=== PATIENT | male | born 1965 | race American Indian/Alaskan Native ===

== ENCOUNTER 2020-10-08 18:40 | Emergency (ER) | payer SELFPAY ==
[2020-10-08 21:35] LABS: Bilirubin,Urine NEG (Negative); Blood,Urine NEG (Negative); Color,Urine Yellow (Yellow); Mucus,Urine FEW /HPF; Urobilinogen,Urine < 2.0 mg/dL (<2.0); WBC,Urine > 182.0 /HPF (0.0-6.0)
[2020-10-08 21:36] LABS: Amphetamine Screen,Urine PRESUMPTIVE NEGATIVE; Benzodiazepines Screen,Urine PRESUMPTIVE NEGATIVE; Cannabinoid Screen,Urine PRESUMPTIVE NEGATIVE; Cocaine Screen,Urine PRESUMPTIVE NEGATIVE; Methadone Screen,Urine PRESUMPTIVE NEGATIVE; Opiate Screen,Urine PRESUMPTIVE NEGATIVE
--- NOTE | 2020-10-08 21:47 | Emergency Department Report ---
ED Male HPI - General Chief complaint: Abdominal Pain Stated complaint: PROSTATE PAIN Time Seen by Provider: 10/08/20 21:34 Source: patient Mode of arrival: Ambulatory Limitations: No Limitations - History of Present Illness Initial comments: CC: "I have been using the bathroom." HPI: THis is a 55 yo male without significant past medical hx who presents with frequent urination and diarrhea for 2 months. He has had diarrhea intermittently once he changed his diet. He started to eat frozen sausage biscuits in order to gain weight. He then developed crampy abdominal pain and diarrhea. With diet change and supplements, diarrhea and abdominal pain have resolved. Now patient is concerned for frequent urination especially at night. He has to urinate at least 5 times at night. His urine stream is a dribble, at times. He desires medication for prostate and urine flow. Mr. Ly has attempted to obtain primary health care through [facility] without success. He does not have health insurance. He denies current fever, abdominal pain, back pain, leg weakness., Complaint: other (frequent urination) -: Gradual, month(s) (2) Severity: mild Improves with: urination Worsens with: urination denies other symptoms - Related Data Previous Rx's Medication Instructions Recorded Last Taken Type HYDROcodone/APAP 5-325 [[place] 1 each PO Q6HR PRN #10 tablet 01/09/16 Unknown Rx 5/325] Nitrofurantoin Macrocrystal 100 mg PO BID 10 Days #20 capsule 10/08/20 Unknown Rx [Nitrofurantoin] Tamsulosin [Flomax] 0.4 mg PO QDAY 90 Days #90 cap 10/08/20 Unknown Rx Allergies Allergy/AdvReac Type Severity Reaction Status Date / Time No Known Allergies Allergy Verified 01/09/16 01:01 ED Review of Systems ROS: Stated complaint: PROSTATE PAIN Other details as noted in HPI Comment: All other systems reviewed and negative Constitutional: denies: fever, malaise Cardiovascular: denies: chest pain Gastrointestinal: abdominal pain, diarrhea. denies: nausea, vomiting Musculoskeletal: denies: back pain ED Past Medical Hx - Past Medical History Previous Medical History?: Yes Additional medical history: Dysuria - Surgical History Past Surgical History?: No - Social History Smoking Status: Never Smoker Substance Use Type: Alcohol, Marijuana - Medications Home Medications: Home Medications Medication Instructions Recorded Confirmed Last Taken Type HYDROcodone/APAP 5-325 [[place] 1 each PO Q6HR PRN #10 tablet 01/09/16 Unknown Rx 5/325] Nitrofurantoin Macrocrystal 100 mg PO BID 10 Days #20 capsule 10/08/20 Unknown Rx [Nitrofurantoin] Tamsulosin [Flomax] 0.4 mg PO QDAY 90 Days #90 cap 10/08/20 Unknown Rx ED Physical Exam - General Limitations: No Limitations General appearance: alert, in no apparent distress - Head Head exam: Present: atraumatic, normocephalic - Eye Eye exam: Present: normal appearance - ENT ENT exam: Present: mucous membranes moist - Neck Neck exam: Present: normal inspection, full ROM - Respiratory Respiratory exam: Present: normal lung sounds bilaterally. Absent: respiratory distress - Cardiovascular Cardiovascular Exam: Present: regular rate, normal rhythm, normal heart sounds. Absent: systolic murmur, diastolic murmur, rubs, gallop - GI/Abdominal GI/Abdominal exam: Present: soft, normal bowel sounds. Absent: distended, tenderness, guarding, rebound - Rectal Rectal exam: Present: deferred - Extremities Exam Extremities exam: Present: normal inspection - Back Exam Back exam: Present: normal inspection - Neurological Exam Neurological exam: Present: alert, oriented X3 - Psychiatric Psychiatric exam: Present: normal affect, normal mood - Skin Skin exam: Present: warm, dry, intact, normal color. Absent: rash ED Course Vital Signs 10/08/20 10/08/20 18:46 18:47 Temperature 98.2 F 98.2 F Pulse Rate 109 H 108 H Respiratory 22 18 Rate Blood Pressure 163/82 175/126 O2 Sat by Pulse 96 99 Oximetry ED Medical Decision Making - Lab Data Laboratory Results - last 24 hr 10/08/20 10/08/20 Unknown Unknown Urine Color Yellow Urine Turbidity Slightly-cloudy Urine pH 7.0 Ur Specific [place] 1.018 Urine Protein 30 mg/dl Urine Glucose (UA) Neg Urine Ketones Neg Urine Blood Neg Urine Nitrite Neg Urine Bilirubin Neg Urine Urobilinogen < 2.0 Ur Leukocyte Esterase Lg Urine WBC (Auto) > 182.0 H Urine RBC (Auto) 9.0 U Epithel Cells (Auto) 1.0 Urine Mucus Few Urine Opiates Screen Presumptive negative Urine Methadone Screen Presumptive negative Ur Barbiturates Screen Presumptive negative Ur Phencyclidine Scrn Presumptive negative Ur Amphetamines Screen Presumptive negative U Benzodiazepines Scrn Presumptive negative Urine Cocaine Screen Presumptive negative U Marijuana (THC) Screen Presumptive negative Drugs of Abuse Note Disclamer - Medical Decision Making Mr. Ly presents with abdominal pain and diarrhea which have resolved with diet change and OTC medications. Frequent urination attributed to BPH. With UA reflective of UTI with pyuria, prostatitis or complicated UTI due to urinary retention must be considered. rx: nitrofurantoin, flomax referred to outpatient medicine physician Critical care attestation.: If time is entered above; I have spent that time in minutes in the direct care of this critically ill patient, excluding procedure time. ED Disposition Clinical Impression: BPH (benign prostatic hyperplasia), UTI (urinary tract infection) Disposition: - TO HOME OR SELFCARE Is pt being admited?: No Does the pt Need Aspirin: No Condition: Stable Instructions: Benign Prostatic Hyperplasia, Acute Urinary Retention, Male, [id number] Prescriptions: Tamsulosin [Flomax] 0.4 mg PO QDAY 90 Days #90 cap Nitrofurantoin Macrocrystal [Nitrofurantoin] 100 mg PO BID 10 Days #20 capsule Referrals: ANA RUDOLPH MD [Staff Physician] - 3-5 Days
[2020-10-08 22:11] VITALS: BP 147/85
== END 2020-10-08 22:03 | disposition home or self-care (01) ==
LOC: ED 18:40
DX: N40.0 Benign prostatic hyperplasia without lower urinary tract symptoms (principal); N39.0 Urinary tract infection, site not specified; F12.90 Cannabis use, unspecified, uncomplicated; Z79.899 Other long term (current) drug therapy
CPT/HCPCS: 80307; 81001; 99283

== ENCOUNTER 2021-06-27 01:23 | Emergency (ER) | payer MEDICARE ==
[2021-06-27 04:13] VITALS: BP 160/78
--- NOTE | 2021-06-27 04:41 | Emergency Department Report ---
ED General Adult HPI - General Chief complaint: Neuro Symptoms/Deficit Stated complaint: RT SIDE NUMBNESS Source: patient Mode of arrival: Ambulatory Limitations: No Limitations - History of Present Illness Initial comments: Patient is a 56-year-old -[place] male with a history of BPH who presents to the ED with complaint of acute onset persistent intermittent right lateral cervical and right arm and right finger tingling sensation for the last 5 hours but which has since resolved upon arrival in the ED. Patient states that he laid down to sleep and laid on his right side but woke up with numbness and tingling sensation of his fingers and hand and that the tingling sensation appeared to radiate to the right lateral cervical area. Patient states that the symptoms have since resolved. Patient denies chest pain, shortness of breath, dizziness, syncope, headache, change in speech, change in vision, right arm weakness, cough, traumatic injury, heavy lifting or back pain and neck pain. MD Complaint: Right arm tingling sensation that radiates to the right lateral neck -: Sudden, hour(s) (5) Location: neck (Lateral right neck), upper extremity (Right arm) Radiation: non-radiation Severity scale (0 -10): 4 Quality: sharp, other (Tingling sensation) Consistency: now resolved Improves with: none Worsens with: none Associated Symptoms: denies other symptoms. denies: confusion, chest pain, cough, diaphoresis, fever/chills, headaches, loss of appetite, malaise, nausea/vomiting, shortness of breath, syncope, weakness, other Treatments Prior to Arrival: none - Related Data Previous Rx's Medication Instructions Recorded Last Taken Type HYDROcodone/APAP 5-325 [[place] 1 each PO Q6HR PRN #10 tablet 01/09/16 Unknown Rx 5/325] Nitrofurantoin Macrocrystal 100 mg PO BID 10 Days #20 capsule 10/08/20 Unknown Rx [Nitrofurantoin] Tamsulosin [Flomax] 0.4 mg PO QDAY 90 Days #90 cap 10/08/20 Unknown Rx Naproxen 500 mg PO Q12H PRN #20 tablet 06/27/21 Unknown Rx predniSONE [Deltasone] 40 mg PO QDAY #10 tab 06/27/21 Unknown Rx Allergies Allergy/AdvReac Type Severity Reaction Status Date / Time No Known Allergies Allergy Verified 01/09/16 01:01 ED Review of Systems ROS: Stated complaint: RT SIDE NUMBNESS Other details as noted in HPI Constitutional: denies: chills, fever Eyes: denies: eye pain, eye discharge, vision change ENT: denies: ear pain, throat pain Respiratory: denies: cough, shortness of breath, wheezing Cardiovascular: denies: chest pain, palpitations Endocrine: no symptoms reported Gastrointestinal: denies: abdominal pain, nausea, diarrhea Genitourinary: denies: urgency, dysuria Musculoskeletal: arthralgia (Right arm and fingers tingling sensation), other (Lateral right cervical tingling sensation). denies: back pain, joint swelling Skin: denies: rash, lesions Neurological: denies: headache, weakness, numbness, paresthesias Psychiatric: denies: anxiety, depression Hematological/Lymphatic: denies: easy bleeding, easy bruising ED Past Medical Hx - Past Medical History Previous Medical History?: Yes Additional medical history: BPH; dysuria - Social History Smoking Status: Current Every Day Smoker Substance Use Type: Marijuana - Medications Home Medications: Home Medications Medication Instructions Recorded Confirmed Last Taken Type HYDROcodone/APAP 5-325 [[place] 1 each PO Q6HR PRN #10 tablet 01/09/16 Unknown Rx 5/325] Nitrofurantoin Macrocrystal 100 mg PO BID 10 Days #20 capsule 10/08/20 Unknown Rx [Nitrofurantoin] Tamsulosin [Flomax] 0.4 mg PO QDAY 90 Days #90 cap 10/08/20 Unknown Rx Naproxen 500 mg PO Q12H PRN #20 tablet 06/27/21 Unknown Rx predniSONE [Deltasone] 40 mg PO QDAY #10 tab 06/27/21 Unknown Rx ED Physical Exam - General Limitations: No Limitations General appearance: alert, in no apparent distress - Head Head exam: Present: atraumatic, normocephalic, normal inspection - Eye Eye exam: Present: normal appearance, PERRL, EOMI Pupils: Present: normal accommodation - ENT ENT exam: Present: normal exam, normal orophraynx, mucous membranes moist, TM's normal bilaterally, normal external ear exam - Neck Neck exam: Present: normal inspection, full ROM - Respiratory Respiratory exam: Present: normal lung sounds bilaterally. Absent: respiratory distress, wheezes, rales, rhonchi, chest wall tenderness, accessory muscle use, decreased breath sounds - Cardiovascular Cardiovascular Exam: Present: regular rate, normal rhythm, normal heart sounds. Absent: systolic murmur, diastolic murmur, rubs, gallop - GI/Abdominal GI/Abdominal exam: Present: soft, normal bowel sounds. Absent: tenderness, guarding, rebound, hyperactive bowel sounds, hypoactive bowel sounds, organomegaly, mass - Extremities Exam Extremities exam: Present: normal inspection, full ROM, normal capillary refill - Back Exam Back exam: Present: normal inspection, full ROM. Absent: tenderness, CVA tenderness (R), CVA tenderness (L), muscle spasm, paraspinal tenderness, vertebral tenderness - Neurological Exam Neurological exam: Present: alert, oriented X3, CN II-XII intact, normal gait, reflexes normal - Psychiatric Psychiatric exam: Present: normal affect, normal mood - Skin Skin exam: Present: warm, dry, intact, normal color. Absent: rash ED Course Vital Signs 06/27/21 02:57 Temperature 98.2 F Pulse Rate 81 Respiratory 18 Rate Blood Pressure 160/78 O2 Sat by Pulse 97 Oximetry ED Medical Decision Making - Radiology Data Radiology results: report reviewed, image reviewed [facility] [address] [place] [address] Cat Scan Report Signed Patient: KIRAN BARNES MR#: [id number] : 1965 Acct:[id number] Age/Sex: 56 / M ADM Date: 06/27/21 Loc: ED Attending Dr: Ordering Physician: MELVI VALIENTE MD Date of Service: 06/27/21 Procedure(s): CT cervical spine wo con Accession Number(s): [id number] cc: MELVI VALIENTE MD CT CERVICAL SPINE WITHOUT CONTRAST INDICATION: Right-sided weakness from neck to hand. COMPARISON: None available. TECHNIQUE: Axial, coronal and sagittal CT imaging of the cervical spine without contrast was performed. All CT scans at this location are performed using CT dose reduction for ALARA by means of automated exposure control. FINDINGS: VERTEBRAE:No acute fracture. Normal alignment. DISC SPACES: Mild discogenic degenerative changes are noted at C5-C6. FACET JOINTS:No significant abnormality. CENTRAL CANAL: There is mild central canal stenosis at C5-C6 secondary to a disc protrusion. No significant neural foraminal narrowing. SOFT TISSUES:No significant abnormality. LUNG APICES: No significant abnormality. ADDITIONAL FINDINGS: None IMPRESSION: 1. No acute findings. 2. Mild cervical spondylosis with mild central canal stenosis at C5-C6. Signer Name: Alcides Osborne MD Signed: 06/27/2021 5:13 AM Workstation Name: [id number] Transcribed By: MN Dictated By: Alcides Osborne MD Electronically Authenticated By: Alcides Osborne MD Signed Date/Time: 06/27/21512 DD/ 0 TD/TT: [facility] [address] [place] [address] Cat Scan Report Signed Patient: KIRAN BARNES MR#: [id number] : 1965 Acct:[id number] Age/Sex: 56 / M ADM Date: 06/27/21 Loc: ED Attending Dr: Ordering Physician: MELVI VALIENTE MD Date of Service: 06/27/21 Procedure(s): CT head/brain wo con Accession Number(s): [id number] cc: MELVI VALIENTE MD CT HEAD WITHOUT CONTRAST INDICATION : RIGHT sided weakness from neck to hand. TECHNIQUE: Axial, coronal and sagittal CT imaging was performed from the skull apex through the skull base without contrast. All CT scans at this location are performed using CT dose reduction for ALARA by means of automated exposure control. COMPARISON: None available. FINDINGS: PARENCHYMA: No mass, midline shift, hemorrhage, extraaxial collection or acute territorial infarction. VENTRICLES: Symmetric and normal in size. SOFT TISSUES: No significant abnormality of the included soft tissues/orbits. BONES: No acute osseous abnormality. SINUSES: No significant abnormality. ADDITIONAL FINDINGS: None. IMPRESSION: 1. No acute intracranial abnormality. Signer Name: Alcides Osborne MD Signed: 06/27/2021 5:11 AM Workstation Name: [id number] Transcribed By: CRISTINA Dictated By: Alcides Osborne MD Electronically Authenticated By: Alcides Osborne MD Signed Date/Time: 06/27/21510 DD/ 9 TD/TT: - Medical Decision Making This is a 56-year-old -[place] male with a history of BPH who presents to the ED with complaint of acute onset persistent intermittent right lateral cervical and right arm and right finger tingling sensation for the last 5 hours but which has since resolved upon arrival in the ED. Patient states that he laid down to sleep and laid on his right side but woke up with numbness and tingling sensation of his fingers and hand and that the tingling sensation appeared to radiate to the right lateral cervical area. Patient states that the symptoms have since resolved. In the ED, patient is alert and oriented x3 and is not in any distress. Patient is hemodynamically stable. The C-spine CT scan without contrast showed no acute cervical disc or spine fractures and subluxations. The head CT scan without contrast showed no acute intracranial abnormalities or hemorrhage. On reevaluation, patient is alert and oriented x3, patient is hemodynamically stable, patient is ambulatory in the ED with no difficulties and patient is able to perform a active range of motion with no upper or lower extremity weakness. Patient was therefore discharged home on pain medications and advised to follow-up with his primary care physician in 5 to 7 days for reevaluation. Patient was advised to return to the ED immediately if symptoms get worse. - Differential Diagnosis Cervical radiculopathy; muscle strain; tendinitis; osteoarthritis; TIA Critical care attestation.: If time is entered above; I have spent that time in minutes in the direct care of this critically ill patient, excluding procedure time. ED Disposition Clinical Impression: Right cervical radiculopathy Muscle strain of right upper extremity Qualifiers: Encounter type: initial encounter Qualified Code(s): S46.911A - Strain of unspecified muscle, fascia and tendon at shoulder and upper arm level, right arm, initial encounter Disposition: DC-01 TO HOME OR SELFCARE Is pt being admited?: No Does the pt Need Aspirin: No Condition: Stable Instructions: Muscle Strain, [id number], Cervical Radiculopathy, [id number] Additional Instructions: The head CT scan without contrast showed no acute intracranial abnormalities or hemorrhage. The C-spine CT scan without contrast showed no acute cervical disc fractures or subluxations. Your symptoms are likely due to cervical radiculopathy which is an impingement of the nerve on your neck causing tingling sensation on your right hand and fingers. Therefore take medication with food, drink plenty of fluids and follow-up with primary care physician in 5 to 7 days for reevaluation. Return to the ED immediately if symptoms get worse. Prescriptions: predniSONE [Deltasone] 40 mg PO QDAY #10 tab Naproxen 500 mg PO Q12H PRN #20 tablet PRN Reason: Pain , Severe (7-10) Referrals: [facility] [Provider Group] - 3-5 Days Time of Disposition: 04:43 Print Language: MALTESE
--- NOTE | 2021-06-27 05:15 | Cat Scan Report ---
CT HEAD WITHOUT CONTRAST INDICATION : RIGHT sided weakness from neck to hand. TECHNIQUE: Axial, coronal and sagittal CT imaging was performed from the skull apex through the skul l base without contrast. All CT scans at this location are performed using CT dose reduction for ALA RA by means of automated exposure control. COMPARISON: None available. FINDINGS: PARENCHYMA: No mass, midline shift, hemorrhage, extraaxial collection or acute territorial infarctio n. VENTRICLES: Symmetric and normal in size. SOFT TISSUES: No significant abnormality of the included soft tissues/orbits. BONES: No acute osseous abnormality. SINUSES: No significant abnormality. ADDITIONAL FINDINGS: None. IMPRESSION: 1. No acute intracranial abnormality. Signer Name: Alcides Osborne MD Signed: 06/27/2021 5:11 AM Workstation Name: [id number]
--- NOTE | 2021-06-27 05:17 | Cat Scan Report ---
CT CERVICAL SPINE WITHOUT CONTRAST INDICATION: Right-sided weakness from neck to hand. COMPARISON: None available. TECHNIQUE: Axial, coronal and sagittal CT imaging of the cervical spine without contrast was performe d. All CT scans at this location are performed using CT dose reduction for ALARA by means of automat ed exposure control. FINDINGS: VERTEBRAE:No acute fracture. Normal alignment. DISC SPACES: Mild discogenic degenerative changes are noted at C5-C6. FACET JOINTS:No significant abnormality. CENTRAL CANAL: There is mild central canal stenosis at C5-C6 secondary to a disc protrusion. No signi ficant neural foraminal narrowing. SOFT TISSUES:No significant abnormality. LUNG APICES: No significant abnormality. ADDITIONAL FINDINGS: None IMPRESSION: 1. No acute findings. 2. Mild cervical spondylosis with mild central canal stenosis at C5-C6. Signer Name: Alcides Osborne MD Signed: 06/27/2021 5:13 AM Workstation Name: [id number]
== END 2021-06-27 06:00 | disposition home or self-care (01) ==
LOC: ED 01:23
DX: S46.911A Strain of unspecified muscle, fascia and tendon at shoulder and upper arm level, right arm, initial encounter (principal); M54.12 Radiculopathy, cervical region; F17.200 Nicotine dependence, unspecified, uncomplicated; F12.90 Cannabis use, unspecified, uncomplicated; Z79.899 Other long term (current) drug therapy; X58.XXXA Exposure to other specified factors, initial encounter; Y93.89 Activity, other specified; Y92.89 Other specified places as the place of occurrence of the external cause; Y99.8 Other external cause status
CPT/HCPCS: 70450; 72125